=== PATIENT | male | born 1980 | race Caucasian/White ===

== ENCOUNTER 2018-12-17 15:40 | Emergency (ER) | payer SELFPAY ==
[~2018-12-17] VITALS: Ht 182.9 cm; Wt 75.0 kg
[2018-12-17 17:21] VITALS: BP 140/74
== END 2018-12-17 17:21 | disposition home or self-care (01) ==
LOC: ER 15:40
DX: Z02.89 Encounter for other administrative examinations (principal)
CPT/HCPCS: 74176; 99284